=== PATIENT | male | born 1970 | race Caucasian/White ===

== ENCOUNTER → 2020-01-15 14:00 | Outpatient (BNVA) | payer OTHER, SELFPAY | PROVIDERS: Family Provider Nurse Practitioner; Visit Provider Nurse Practitioner Family | DX: Z20.828 Contact with and (suspected) exposure to other viral communicable diseases (principal); R05 Cough; R51.9 Headache, unspecified; H65.192 Other acute nonsuppurative otitis media, left ear | CPT/HCPCS: 87635 ==